=== PATIENT | female | born 1980 | race Caucasian/White ===

== ENCOUNTER 2021-06-13 11:51 | Day surgery (SDC) | payer BC ==
[2021-06-13] MEDS ORDERED: fentaNYL 100 MCG/2 ML SDV IV ONE (11:52)
[2021-06-13] MEDS ORDERED: diphenhydrAMINE 50 MG/ML SDV IVPUSH ONE (11:52)
[2021-06-13] MEDS ORDERED: Rocuronium 100 MG/10 ML MDV IV ONE (11:52)
[2021-06-13] MEDS ORDERED: Propofol 200 MG/20 ML SDV IV ONE (11:52)
[2021-06-13] MEDS ORDERED: Lactated Ringers 1,000 ML IV ONE (11:52)
[2021-06-13] MEDS ORDERED: Midazolam 1 MG/ML 2 ML SDV IV ONE (11:52)
[2021-06-13] MEDS ORDERED: Neostigmine Methylsulfate 10 MG/10 ML MDV IVPUSH ONE (11:52)
[2021-06-13] MEDS ORDERED: Ketorolac 30 MG/ML SDV IVPUSH ONE (11:52)
[2021-06-13] MEDS ORDERED: Glycopyrrolate 0.2 MG/ML 5 ML MDV IV ONE (11:52)
[2021-06-13] MEDS ORDERED: Dexamethasone 4 MG/ML 5 ML MDV IVPUSH ONE (11:52)
[2021-06-13] MEDS ORDERED: Succinylcholine 200 MG/10 ML MDV IV ONE (11:52)
[2021-06-13] MEDS ORDERED: Ondansetron 4 MG/2 ML SDV IVPUSH ONE (11:52)
[2021-06-13] MEDS ORDERED: Sodium Chloride 0.9% 10 ML Syringe FLUSH PRN (12:01)
[2021-06-13] MEDS ORDERED: ceFAZolin 1 GM Vial IVPUSH ONE (12:10)
[2021-06-13] MEDS ORDERED: Lactated Ringers 1,000 ML IV SCH (12:15)
[2021-06-13] MEDS ORDERED: ceFAZolin 1 GM in Sodium Chloride 0.9% 50 ML IV ONE (12:45)
== END 2021-06-13 17:45 | disposition home or self-care (01) ==
LOC: FB.SDS 11:51
PROVIDERS: ATTEND Surgery
DX: K80.12 Calculus of gallbladder with acute and chronic cholecystitis without obstruction (principal); Z79.899 Other long term (current) drug therapy; Z01.812 Encounter for preprocedural laboratory examination; Z20.822 Contact with and (suspected) exposure to COVID-19
CPT/HCPCS: 00790-QZ; 81001; 81025; 87086; 87088; 87186; 88304; J0330; J0690; J1100; J1200; J1885; J2250; J2405; J2704; J2710; J3010; J3490; J7120; U0002